=== PATIENT | male | born 1950 | race Caucasian/White ===

== ENCOUNTER → 2020-02-22 14:23 | Outpatient (BNVA) | payer MEDICARE, OTHER, SELFPAY | PROVIDERS: Visit Provider Nurse Practitioner Family | DX: Z11.59 Encounter for screening for other viral diseases (principal); J06.9 Acute upper respiratory infection, unspecified; Z20.828 Contact with and (suspected) exposure to other viral communicable diseases | CPT/HCPCS: 87635 ==

== ENCOUNTER 2022-07-17 10:30 | Outpatient (CLI) | payer MEDICARE, SELFPAY ==
--- NOTE | 2022-07-17 10:46 | MR_ITS ---
WS: [id number] MRI LUMBAR SPINE NONCONTRAST TECHNIQUE: Sagittal T1, T2 and STIR imaging. Axial T1 and T2 imaging. CLINICAL INFORMATION: LOW BACK PAIN COMPARISON: None. FINDINGS: Small syrinx partially visualized in the lower thoracic cord. Recommend further evaluation with thora cic spine MRI. Mild lumbar curve. No acute compression. Slight anterolisthesis L4 on L5. 7.9 mm RIGHT synovial cyst L4-L5 results in moderate to severe RIGHT to LEFT central canal stenosis. Impingement traversing RIGHT L5 nerve root. L1-L2: Mild annular bulging. Mild facet arthropathy. Spinal canal and foramen are patent. L2-L3: Mild annular bulging. Mild facet arthropathy. Slight narrowing of the subarticular recess bila terally. Foramen are patent. L3-L4: Mild annular bulging. Slight effacement of ventral thecal sac. Mild LEFT and no significant RI GHT foraminal narrowing. Mild facet arthropathy. Small LEFT foraminal protrusion. L4-L5: 7.9 mm RIGHT synovial cyst with RIGHT impingement on the thecal sac and moderate to severe carroll tral canal stenosis. Impingement traversing RIGHT L5 nerve root. Moderate facet arthropathy. Small fa cet effusions. Mild bilateral foraminal narrowing. This is worse in the LEFT. L5-S1: Mild annular bulging. Slight effacement of ventral thecal sac. Moderate facet arthropathy. Spi nal canal and foramen are patent. Bilateral renal cortical atrophy. Visualized pelvic bony structures: Normal. Paravertebral soft tissues: Normal. MR/MR lumbar spine wo con* [id number] IMPRESSION: 1. Small syrinx partially visualized in the lower thoracic cord. Recommend fur ther evaluation with thoracic spine MRI. 2. 7.9 mm synovial cyst RIGHT L4-L5 with RIGHT to LEFT impingement on the thec al sac with moderate to severe central canal stenosis. This impinges the patrick sing RIGHT L5 nerve root. 3. Tiny LEFT foraminal protrusion L3-L4 with mild LEFT foraminal narrowing and slight contact of the exiting LEFT L3 nerve root. 4. Mild LEFT greater than RIGHT L4-L5 foraminal narrowing. 5. Moderate facet arthropathy L4-L5 and L5-S1.
== END 2022-07-17 10:31 | disposition home or self-care (01) ==
PROVIDERS: PCP Family Medicine; Visit Provider Nurse Practitioner
DX: M47.817 Spondylosis without myelopathy or radiculopathy, lumbosacral region (principal); M48.061 Spinal stenosis, lumbar region without neurogenic claudication; M71.38 Other bursal cyst, other site; M54.51 Vertebrogenic low back pain
CPT/HCPCS: 72148

== ENCOUNTER 2022-07-18 06:25 | Outpatient (CLI) | payer MEDICARE, SELFPAY ==
--- NOTE | 2022-07-18 | XR_ITS ---
WS: [id number] XR lumbar spine f/e only [id number] REASON FOR EXAM: VERTEBROGENIC LOW BACK PAIN FINDINGS: Normal lordosis. No significant vertebral body abnormality. Mild narrowing of the lumbar intervertebral disc spaces with anterior vertebral body osteophytosis L1 -L5. 2 to 3 mm of anterolisthesis of L3 in relation to L2 and L4 in relation to L3. No significant change in these listheses with flexion and extension. No other abnormal vertebral body movement. Moderate degenerative changes in the facet joints L3-S1. XR/XR lumbar spine f/e only [id number] IMPRESSION: Degenerative spondylosis as above.
== END 2022-07-18 06:26 | disposition home or self-care (01) ==
LOC: RAD 06:27
PROVIDERS: PCP Family Medicine; Visit Provider Nurse Practitioner
DX: M47.816 Spondylosis without myelopathy or radiculopathy, lumbar region (principal)
CPT/HCPCS: 72120

== ENCOUNTER → 2022-11-21 13:08 | Outpatient (BNVA) | payer MEDICARE, SELFPAY | PROVIDERS: PCP Family Medicine; Referring Provider Anesthesiology Pain Medicine; Visit Provider Orthopaedic Surgery | DX: M48.062 Spinal stenosis, lumbar region with neurogenic claudication (principal); M79.651 Pain in right thigh; M85.58 Aneurysmal bone cyst, other site | CPT/HCPCS: 36415; 80053; 85025; 99204 ==

== ENCOUNTER → 2022-11-22 11:20 | Outpatient (BNVA) | payer MEDICARE, SELFPAY | PROVIDERS: PCP Family Medicine; Visit Provider Orthopaedic Surgery | DX: Z01.818 Encounter for other preprocedural examination (principal) | CPT/HCPCS: 81000 ==

== ENCOUNTER 2022-12-11 09:12 | Day surgery (SDC) | payer MEDICARE, SELFPAY ==
[2022-12-10 09:46] VITALS: BMI 30.9
[2022-12-11] VITALS (7 sets, daily range): BP systolic 146–179; BP diastolic 80–92; PULSE 56–90; RESP 14–18; TEMP 36.1–36.5; O2SAT 92–95
--- NOTE | 2022-12-11 | XR_ITS ---
WS: [id number] Exam: XR lumbar spine 1V [id number] Date/Time of Exam: 12/11/2022 12:00 AM Reason For Exam: ADINA PICS A single AP C-arm image of the lower lumbar spine was obtained for intraoperative localization purpos es.
[2022-12-11] MEDS: sodium chloride 0.9% 1,000 ML 30 ML IV (10:04)
--- NOTE | 2022-12-11 10:56 | ANES.PREANE2 ---
Pre-Anesthetic Assessment Height/Weight: Height 1.85 m Weight 106.594 kg Temp Pulse Resp BP Pulse Ox O2 Del Method 97 F L 65 18 179/87 93 Room Air 12/11/22 09:51 12/11/22 09:51 12/11/22 09:51 12/11/22 09:51 12/11/22 09:51 12/11/22 09:51 Preop Diagnosis: Lumbar stenosis with neurogenic claudication Operation Date: 12/11/22 10:55 Proposed Procedures p 62903: L4/5 Minimally invasive decompression, M48.062: Lumbar stenosis with neurogenic claudication(Not Applicable) - Rogers Cedeño DO Familial anesthetic complications: None Was Beta Khoa taken within 24 hours: N/A Was Clonidine taken within 24 hours: N/A Last intake: Intake Last Liquid Date 12/10/22 Last Liquid Time 22:00 Last Solid Date 12/10/22 Last Solid Time 19:00 Social No alcohol and No tobacco Exam alert, oriented x 3, clear to auscultation bilaterally and regular rate & rhythm Airway Mallampati: Class II Dentition: false CV/HEM Hypertension Anesthetic Plan ASA status: 2 Anesthesia: General Risk of > 500 ml blood loss (7ml/kg in children): No Medications/Allergies Home Medications Medication Instructions Recorded Confirmed Last Taken Type acetaminophen/codeine 300 mg PO 6XD 11/21/22 12/11/22 12/01/22 History celecoxib 200 mg PO 1XD 11/21/22 12/10/22 12/10/22 History gabapentin 200 mg PO 3XD 11/21/22 12/10/22 12/11/22 05:00 History terazosin 2 mg PO 1XD 11/21/22 12/10/22 12/10/22 History Allergies Allergy/AdvReac Type Severity Reaction Status Date / Time Penicillins Allergy Intermediate rash Verified 12/11/22 09:41 ibuprofen Allergy Mild swelling Verified 12/11/22 09:41 adhesive tape AdvReac Severe blisters Verified 12/11/22 09:41 Current Medications Generic Name Dose Route Start Last Admin Trade Name Freq PRN Reason Stop Dose Admin Sodium Chloride 1,000 mls @ 30 mls/hr 12/11/22 09:30 12/11/22 10:04 Sodium Chloride 0.9% IV 12/12/22 09:29 30 mls/hr .Q24H JORGE Administration Data Anesthesia Cardiac Studies: No Data to Display
--- NOTE | 2022-12-11 11:14 | W.PM.OPSUD ---
Surgery/Procedure H&P Update DATE OF PROCEDURE: December 11, 2022 DATE H&P PERFORMED: 11/21/22 H&P UPDATE INFORMATION: I have reviewed H&P completed within last 30 days, I have examined patient prior to procedure and No changes to prior documentation PREOP DIAGNOSIS: Lumbar stenosis with neurogenic claudication PLANNED PROCEDURE: Operation Date: 12/11/22 10:55 Proposed Procedures p 93221: L4/5 Minimally invasive decompression, M48.062: Lumbar stenosis with neurogenic claudication(Not Applicable) - Rogers Cedeño DO
[2022-12-11] MEDS: vancomycin 1,000 MG in sodium chloride 0.9% 250 ML 250 MG IV (12:03)
[2022-12-11] MEDS: lidocaine-epi 1% 20 mL INJ INJECTION (12:30)
--- NOTE | 2022-12-11 13:29 | P.OP_ITS ---
Operative Report Date of procedure: December 11, 2022 Pre-op diagnosis: Preop Diagnosis Lumbar stenosis with neurogenic claudication Post-op diagnosis: same Procedure done: 1. Right L4/5 laminectomy with partial facetectomy Surgeon: Rogers Cedeño Manager Grant: Babatunde Castaneda Manager Grant: The neurosurgical nurse practitioner, MELVIN Valdes was needed for his expertise under the microscope. He was important and necessary throughout the procedure to complete in a safe and timely manner. He assisted with patient positioning prepping and draping tissue retraction suctioning of the operative field protection of the dural sac and tissue closure Estimated blood loss (mL): 5 Procedure: 1. Right L4/5 laminectomy with partial facetectomy Patient is brought to the operative suite. After undergoing anesthesia they are placed in the prone position. All areas of impingement are well padded. Patient is then prepped and draped in the normal sterile fashion. A skin incision is made over the L4/5 level. This is confirmed under c-arm guidance. A series of dilators are passed and the tubular retractor is docked on the L4 lamina. A bovie is used to clear the soft tissue off the lamina and the L 4/5 facet joint. A high speed melvina is then used to perform the laminectomy and take down the medial aspect of the L 4/5 facet joint. A kerrison rongeure was then used to take down the remaining lamina and smooth the edge of the laminectomy up to the point where the ligamentum flavum attaches. Attention was then brought to the medial aspect of the facet joint. The remaining medial aspect of the superior and inferior aspect of the facet joint were taken down with the kerrison from the pedicle of L4 to L 5. The facet joint had significant hypertrophy. Attention was then brought to the Ligamentum Flavum. The ligament was taken down from the lamina of L4 to L5 and out medially to the remaining facet joint. The ligament was thick. The dura was then exposed. The dura was in good repair. The L4 nerve was then traced with a curette out the L4/5 foramen and found to be adequately decompressed. The L5 nerve was traced with a curette around the L5 pedicle. The lateral recess was opened with a kerrison helping to further decompress the L5 nerve. Wound is then irrigated copiously with saline and surgiflo is used to stop any bleeding. The tubular retractor is removed and the wound is closed with vicryl and monocryl suture. Glue is then used to protect the wound. A sterile dressing is then placed. Patient was then placed in the supine position and transferred to the PACU in stable condition.
--- NOTE | 2022-12-11 16:05 | ANE.PACU2 ---
Inpatient post-anesthesia follow up: Airway intact: Yes Vital signs: Temperature 97.7 F Pulse Rate 56 Respiratory Rate 16 Blood Pressure 146/82 Pulse Oximetry 92 Oxygen Delivery Me thod Room Air Oxygen Flow Rate Fraction of Inspir ed Oxygen Hydration adequate: Yes Nausea and vomiting: No Pain level: 1 Mental status: Baseline
== END 2022-12-11 14:06 | disposition home or self-care (01) ==
PROVIDERS: PCP Family Medicine; Visit Provider Orthopaedic Surgery
PROC: (CPT 63005; principal; 2022-12-11 10:45)
DX: M48.062 Spinal stenosis, lumbar region with neurogenic claudication (principal); I10 Essential (primary) hypertension
CPT/HCPCS: 63047; 72020; 76000; J1100; J2405; J2704; J3010; J3370; J3490; J7030; J7050

== ENCOUNTER → 2022-12-26 10:40 | Outpatient (BNVA) | payer MEDICARE, SELFPAY | PROVIDERS: PCP Family Medicine; Visit Provider Orthopaedic Surgery | DX: Z47.89 Encounter for other orthopedic aftercare (principal) | CPT/HCPCS: 99024 ==

== ENCOUNTER → 2023-01-23 08:03 | Outpatient (BNVA) | payer MEDICARE, SELFPAY | PROVIDERS: PCP Family Medicine; Visit Provider Orthopaedic Surgery | DX: M48.062 Spinal stenosis, lumbar region with neurogenic claudication (principal); Z47.89 Encounter for other orthopedic aftercare | CPT/HCPCS: 99024 ==

== ENCOUNTER → 2023-02-27 13:09 | Outpatient (BNVA) | payer MEDICARE, SELFPAY | PROVIDERS: PCP Family Medicine; Visit Provider Orthopaedic Surgery | DX: Z47.89 Encounter for other orthopedic aftercare (principal) | CPT/HCPCS: 99024 ==

== ENCOUNTER → 2023-03-20 13:00 | Outpatient (BNVA) | payer MEDICARE, SELFPAY | PROVIDERS: PCP Family Medicine; Visit Provider Orthopaedic Surgery | DX: Z47.89 Encounter for other orthopedic aftercare (principal) | CPT/HCPCS: 99024 ==

== ENCOUNTER → 2023-09-23 12:14 | Outpatient (BNVA) | payer MEDICARE, SELFPAY | PROVIDERS: PCP Family Medicine; Visit Provider Orthopaedic Surgery | DX: Z98.890 Other specified postprocedural states (principal) | CPT/HCPCS: 99213 ==

== ENCOUNTER → 2024-06-10 16:20 | Outpatient (BNVA) | payer MEDICARE, SELFPAY | PROVIDERS: PCP Family Medicine; Visit Provider Orthopaedic Surgery | DX: M48.062 Spinal stenosis, lumbar region with neurogenic claudication (principal) | CPT/HCPCS: 72100; 99214 ==

== ENCOUNTER 2024-06-25 13:39 | Outpatient (CLI) | payer MEDICARE, SELFPAY ==
--- NOTE | 2024-06-25 15:15 | MR_ITS ---
WS: [id number] MRI LUMBAR SPINE NONCONTRAST HISTORY: back pain COMPARISON: 07/17/2022 TECHNIQUE: Sagittal and axial multisequence imaging is submitted. Reidentified is the syrinx noted in the lower thoracic cord at the T11-12 level. Syrinx seen only on the sagittal imaging. MRI thoracic spine was recommended on the prior examination of 07/17/2022. Increase in thoracic kyphosis. Small Schmorl's nodes are present within the thoracic spine. Mild anterior wedging of T8. L4 anterolisthesis by 4 mm. Anterolisthesis has slightly progressed since the prior study. Mild disc desiccation throughout the lumbar spine. There is some marrow edema in the L5 pedicles. Minimal marrow edema in the L4 pedicles. Conus terminates normally at L1-2 disc level. L1-L2: Diffuse annular disc bulging and facet arthropathy. New shallow LEFT foraminal disc protrusion. Mild ligamentum flavum and facet arthritis. L2-L3: Annular disc bulging with osteophytic ridging. Mild ligamentum flavum and facet arthritis. Mild bilateral foraminal stenosis. L3-L4: Mild annular disc bulging with osteophytic ridging, ligamentum flavum and facet arthritis. Fluid in the facet joints. Effacement of ventral thecal sac. Bilateral small foraminal disc protrusions. Mild central, subarticular recess and foraminal stenosis. There is disc contacting the exiting L3 nerve roots in the foramina. Mild progression since the prior study. L4-L5: Diffuse annular disc bulging, osteophytic ridging. Marked ligamentum flavum and facet arthritis. 7 mm RIGHT facet joint cyst encroaching and deforming the thecal sac. Severe central, bilateral subarticular recess and moderate foraminal stenosis. RIGHT hemilaminectomy defect. L5-S1: Diffuse annular disc bulging with a shallow central disc protrusion. Mild contact on the S1 nerve roots. Ligamentum flavum and facet arthritis. No high- grade stenosis. Paravertebral soft tissues are negative. MR/MR lumbar spine wo con* [id number] IMPRESSION: 1. Lower thoracic cord syrinx is reidentified. Consider evaluation by MRI thor acic spine with and without contrast. 2. RIGHT hemilaminectomy defect at L4-5. 3. L4-5: Severe central, bilateral subarticular recess and moderate foraminal stenosis. RIGHT facet joint cyst continues to encroach upon the thecal sac with deformity and contributing to the stenosis. 4. RIGHT L4-5 hemilaminectomy defect. 5. L3-4: Mild central, subarticular recess and foraminal stenosis. Small bilat eral foraminal disc protrusions. Mild progression since the prior study. 6. L2-3: Mild foraminal stenosis. 7. L1-2: New shallow LEFT foraminal disc protrusion. 8. Grade 1 anterolisthesis of L4 has progressed since 2022.
== END 2024-06-25 13:40 | disposition home or self-care (01) ==
LOC: RAD 13:41
PROVIDERS: PCP Family Medicine; Visit Provider Orthopaedic Surgery
DX: Z98.890 Other specified postprocedural states (principal); G95.0 Syringomyelia and syringobulbia; M48.061 Spinal stenosis, lumbar region without neurogenic claudication; M25.80 Other specified joint disorders, unspecified joint; M51.26 Other intervertebral disc displacement, lumbar region; R93.7 Abnormal findings on diagnostic imaging of other parts of musculoskeletal system; M40.294 Other kyphosis, thoracic region; M51.44 Schmorl's nodes, thoracic region; M48.54XA Collapsed vertebra, not elsewhere classified, thoracic region, initial encounter for fracture; M51.369 Other intervertebral disc degeneration, lumbar region without mention of lumbar back pain or lower extremity pain; M47.896 Other spondylosis, lumbar region; M24.28 Disorder of ligament, vertebrae; M51.379 Other intervertebral disc degeneration, lumbosacral region without mention of lumbar back pain or lower extremity pain
CPT/HCPCS: 72148

== ENCOUNTER → 2024-07-06 14:28 | Outpatient (BNVA) | payer MEDICARE, SELFPAY | PROVIDERS: PCP Family Medicine; Visit Provider Orthopaedic Surgery | DX: M48.062 Spinal stenosis, lumbar region with neurogenic claudication (principal) | CPT/HCPCS: 36415; 80053; 81001; 85025; 99214 ==

== ENCOUNTER → 2024-07-20 11:16 | Outpatient (BNVA) | payer MEDICARE, SELFPAY | PROVIDERS: PCP Family Medicine; Visit Provider Family Medicine | DX: Z01.818 Encounter for other preprocedural examination (principal); R00.1 Bradycardia, unspecified; R94.31 Abnormal electrocardiogram [ECG] [EKG] | CPT/HCPCS: 93005 ==

== ENCOUNTER 2024-07-21 10:36 | Day surgery (SDC) | payer MEDICARE, SELFPAY ==
[2024-07-21] VITALS (10 sets, daily range): BP systolic 132–175; BP diastolic 73–92; PULSE 55–62; RESP 17–18; TEMP 36.3–36.6; O2SAT 90–97; BMI 28.8
--- NOTE | 2024-07-21 | XR_ITS ---
WS: [id number] Exam: XR lumbar spine 2-3V* [id number] Date/Time of Exam: 07/21/2024 12:00 AM Reason For Exam: ADINA PICS LAMINECTOMY Preop AP C-arm images of the lower lumbar spine are submitted. Images were obtained for pre-op localization purposes.
--- NOTE | 2024-07-21 11:22 | P.ANESASSM_ITS ---
Pre-Anesthetic Assessment Height/Weight: Height 6 ft 1 in Weight 219 lb Temp Pulse Resp BP Pulse Ox O2 Del Method 97.4 F L 57 L 17 175/92 97 Room Air 07/21/24 11:05 07/21/24 11:05 07/21/24 11:05 07/21/24 11:05 07/21/24 11:05 07/21/24 11:07 Preop Diagnosis: Lumbar stenosis with neurogenic claudication Operation Date: 07/21/24 12:20 Proposed Procedures p Lumbar Spine Decompression(Not Applicable) - Rogers Cedeño, DO Was Beta Khoa taken within 24 hours: N/A Was Clonidine taken within 24 hours: N/A Last intake: Intake Last Liquid Date 07/20/24 Last Liquid Time 19:00 Last Solid Date 07/20/24 Last Solid Time 19:00 Social No alcohol and No tobacco Exam alert, oriented x 3, clear to auscultation bilaterally and regular rate & rhythm Airway Submandibular: within normal limits Cervical ROM: within normal limits Mallampati: Class III Dentition: false Anesthetic Plan ASA status: 2 Anesthesia: General Other: No prior issues with anesthesia NPO since yesterday evening History of hypertension on terazosin Denies any pulmonary issues Labs reviewed and acceptable for procedure EKG showing sinus rhythm with possible old inferior PA Plan for general anesthesia Medications/Allergies Home Medications ?Medication ?Instructions ?Recorded ?Confirmed ?Last Taken ?Type celecoxib 200 mg PO 1XD 11/21/2207/2007/20/24 History terazosin 2 mg PO 1XD 11/21/22 5 07/20/24 History gabapentin 100 mg capsule 100 mg PO TID 30 days #90 ca ps 06/10/24 07/20/24 07/20/24 Rx calcium phosphate,dibasic 77 1 tab PO DAILY 07/20/24 0 07/20/24 07/20/24 History mg-vitamin D3 400 unit tablet Allergies Allergy/AdvReac Type Severity Reaction Status Date / Time Penicillins Allergy Intermediate rash Verified 07/20/24 11:37 ibuprofen Allergy Mild swelling Verified 07/20/24 11:37 adhesive tape AdvReac Severe blisters Verified 07/20/24 11:37 [facility] Anesthesia Social History Smoking and tobacco/nicotine status: never used tobacco/nicotine Data Anesthesia Cardiac Studies: No Data to Display
[2024-07-21] MEDS: sodium chloride 0.9% 1,000 ML 30 ML IV (11:25)
--- NOTE | 2024-07-21 12:11 | W.PM.OPSUD ---
Surgery/Procedure H&P Update DATE OF PROCEDURE: July 21, 2024 DATE H&P PERFORMED: 07/06/24 H&P UPDATE INFORMATION: I have reviewed H&P completed within last 30 days, I have examined patient prior to procedure and No changes to prior documentation PREOP DIAGNOSIS: Lumbar stenosis with neurogenic claudication PLANNED PROCEDURE: Operation Date: 07/21/24 12:20 Proposed Procedures p Lumbar Spine Decompression(Not Applicable) - Rogers Cedeño DO
[2024-07-21] MEDS: clindamycin 600 MG/50 ML PREMIX IV (13:29)
[2024-07-21] MEDS: lidocaine-epi 1% PF 1:200,000 30 mL SDV INJECTION (13:33)
--- NOTE | 2024-07-21 14:46 | P.OP_ITS ---
Operative Report Date of procedure: July 21, 2024 Pre-op diagnosis: Lumbar stenosis with neurogenic claudication Post-op diagnosis: same Procedure done: 1. L4-5 laminectomy with partial facetectomy revision 2. L5-S1 laminectomy with partial facetectomy Surgeon: Rogers Cedeño DO Estimated blood loss (mL): 20 Procedure: 1. L4-5 laminectomy with partial facetectomy revision 2. L5-S1 laminectomy with partial facetectomy Patient is brought to the operative suite. After undergoing anesthesia they are placed in the prone position. All areas of impingement are well padded. Patient is then prepped and draped in the normal sterile fashion. A skin incision is made over the L4/5 level using the previous incision. This is confirmed under c-arm guidance. A series of dilators are passed and the tubular retractor is docked on the L4 lamina. A bovie is used to clear the soft tissue off the lamina and the L 4/5 facet joint. A high speed melvina is then used to perform the laminectomy and take down the medial aspect of the L4/5 facet joint. A kerrison rongeure was then used to take down the remaining lamina and smooth the edge of the laminectomy up to the point where the ligamentum flavum attaches. Attention was then brought to the medial aspect of the facet joint. The remaini ng medial aspect of the superior and inferior aspect of the facet joint were taken down with the kerrison from the pedicle of L4 to L 5. The facet joint had significant hypertrophy. Part of the ligamentum was scarred down there was a facet cyst which was removed him is hard was sent to pathology. Attention was then brought to the Ligamentum Flavum. The ligament was taken down from the lamina of L4 to L5 and out medially to the remaining facet joint. The dura was then exposed. The dura was in good repair. The L4 nerve was then traced with a curette out the L4/5 foramen and found to be adequately decompressed. The L5 nerve was traced with a curette around the L5 pedicle. Wound is then irrigated copiously with saline and surgiflo is used to stop any bleeding. The tubular retractor is removed and the A skin incision is made over the L5/S1 level. This is confirmed under c-arm guidance. A series of dilators are passed and the tubular retractor is docked on the L5 lamina. A bovie is used to clear the soft tissue off the lamina and the L 5/S1 facet joint. A high speed melvina is then used to perform the laminectomy and take down the medial aspect of the L 5/S1 facet joint. A kerrison rongeure was then used to take down the remaining lamina and smooth the edge of the laminectomy up to the point where the ligamentum flavum attaches. Attention was then brought to the medial aspect of the facet joint. The remaining medial aspect of the superior and inferior aspect of the facet joint were taken down with the kerrison from the pedicle of L5 to S1. The facet joint had significant hypertrophy. Attention was then brought to the Ligamentum Flavum. The ligament was taken down from the lamina of L5 to S1 and out medially to the remaining facet joint. The ligament was thick. The dura was then exposed. The dura was in good repair. The L5 nerve was then traced with a curette out the L5/S1 foramen and found to be adequately decompressed. The S1 nerve was traced with a curette around the S1 pedicle. The lateral recess was opened with a kerrison helping to further decompress the S1 nerve. Wound is then irrigated copiously with saline and surgiflo is used to stop any bleeding. The tubular retractor is removed and the Wound is closed with vicryl and monocryl suture. Glue is then used to protect the wound. A sterile dressing is then placed. Patient was then placed in the supine position and transferred to the PACU in stable condition.
--- NOTE | 2024-07-21 14:49 | ANE.PACU2 ---
Inpatient post-anesthesia follow up: Airway intact: Yes Vital signs: Temperature 97.4 F Pulse Rate 57 Respiratory Rate 17 Blood Pressure 175/92 Pulse Oximetry 97 Oxygen Delivery Me thod Room Air Oxygen Flow Rate Fraction of Inspir ed Oxygen Hydration adequate: Yes Nausea and vomiting: No Pain level: 1 Mental status: Baseline
--- NOTE | 2024-07-21 15:19 | ECG_ITS ---
[facility] Date: 2024-07-21 Pat Name: Ruben Damon Department: Room: Gender: Male Healthcare Manager: : 1950 Requested By: Paul Pearson Order Number: [id number] Alexandra MD: Dionne Boland M.D. Measurements Intervals [place] Rate: 55 P: 57 IL: 193 QRS: -24 QRSD: 101 T: -5 QT: 453 QTc: 434 Interpretive Statements SINUS BRADYCARDIA LOW QRS VOLTAGE IN PRECORDIAL LEADS [QRS DEFLECTION < 1.0 mV IN CHEST LEADS] PATTERN CONSISTENT WITH PULMONARY DISEASE POSSIBLE INFERIOR MYOCARDIAL INFARCTION , PROBABLY OLD [30 ms Q WAVE IN II/aVF] Compared to ECG 07/20/2024 11:17:06 Sinus rhythm no longer present Myocardial infarct finding still present Electronically Signed On 07-21-2024 15:56:20 CDT by Dionne Boland M.D. [email or web address]
[2024-07-21] MEDS: HYDROcodone-acetaminophen 5-325 mg Tablet 1 TAB PO (15:59)
== END 2024-07-21 16:05 | disposition home or self-care (01) ==
PROVIDERS: PCP Family Medicine; Visit Provider Orthopaedic Surgery
PROC: (CPT 63005; principal; 2024-07-21 12:10)
DX: M48.062 Spinal stenosis, lumbar region with neurogenic claudication (principal); M85.68 Other cyst of bone, other site; I10 Essential (primary) hypertension; I25.2 Old myocardial infarction; Z79.899 Other long term (current) drug therapy; Z88.0 Allergy status to penicillin; Z88.8 Allergy status to other drugs, medicaments and biological substances
CPT/HCPCS: 63047; 63048; 72100; 76000; 88304; 93005; J1100; J2405; J2704; J3010; J3490; J7030; J9999

== ENCOUNTER → 2024-08-03 07:52 | Outpatient (BNVA) | payer MEDICARE, SELFPAY | PROVIDERS: PCP Family Medicine; Visit Provider Orthopaedic Surgery | DX: Z98.890 Other specified postprocedural states (principal) | CPT/HCPCS: 99024 ==

== ENCOUNTER → 2024-08-31 07:27 | Outpatient (BNVA) | payer MEDICARE, SELFPAY | PROVIDERS: PCP Family Medicine; Visit Provider Orthopaedic Surgery | DX: M48.062 Spinal stenosis, lumbar region with neurogenic claudication (principal) | CPT/HCPCS: 99024 ==

== ENCOUNTER → 2024-09-14 07:35 | Outpatient (BNVA) | payer MEDICARE, SELFPAY | PROVIDERS: PCP Family Medicine; Visit Provider Orthopaedic Surgery | DX: Z98.890 Other specified postprocedural states (principal) | CPT/HCPCS: 99024 ==

== ENCOUNTER → 2024-10-26 07:36 | Outpatient (BNVA) | payer MEDICARE, SELFPAY | PROVIDERS: PCP Family Medicine; Visit Provider Orthopaedic Surgery | DX: Z98.890 Other specified postprocedural states (principal) | CPT/HCPCS: 99024 ==